=== PATIENT | male | born 1965 | race Caucasian/White ===

== ENCOUNTER 2016-05-16 05:42 | Emergency (ER) | payer OTHER ==
[~2016-05-16] VITALS: Ht 185.4 cm; Wt 171.0 kg
[2016-05-16 06:30] LABS: ADD MIUA? NO; BILIRUBIN NEGATIVE; BLOOD NEGATIVE; COLOR YELLOW ((YELLOW)); GLUCOSE (STRIP) NEGATIVE; KETONES NEGATIVE; LEUKOCYTES NEGATIVE; NITRITE NEGATIVE; PROTEIN (STRIP) NEGATIVE; SPECIFIC GRAVITY 1.017 (1.000-1.030); UROBILINOGEN 0.2 MG/DL (0.2-1.0)
[2016-05-16 06:31] LABS: BASOPHIL COUNT 0.1 K/uL (0-0.1); EOSINOPHIL COUNT 0.2 K/uL (0-0.3); HEMATOCRIT 46.8 % (38.0-50.0); IMMATURE GRANULOCYTE (%) 0.2 % (0.0-0.7); IMMATURE GRANULOCYTE COUNT 0.2 K/uL; LYMPHOCYTE COUNT 1.5 K/uL (1.0-2.8); MCH 29.8 PG (29.0-34.0); MCHC 33.3 G/DL (30.0-36.0); MCV 89.3 FL (86-99); MEAN PLAT.VOLUME 11.4 uM^3 (9.0-12.4); MONOCYTE (%) 6.1 % (3-12); MONOCYTE COUNT 0.5 K/uL (0-0.8); NEUTROPHIL (%) 73.6 % (45-76); NEUTROPHIL COUNT 6.3 K/uL (1.8-6.4); PLATELET COUNT 179 K/uL (156-360); RBC DIS.WIDTH-CV 13.1 % (11.8-14.6); RBC DIS.WIDTH-SD 42.5 % (39-53); RED BLOOD COUNT 5.24 M/uL (4.00-5.50); WHITE BLOOD COUNT 8.5 K/uL (4.1-10.2)
[2016-05-16 06:41] LABS: CHLORIDE 110 mEq/L (99-109); POTASSIUM 4.3 mEq/L (3.7-5.4); SODIUM 140 mEq/L (136-147)
[2016-05-16] MEDS ORDERED: TIMOPTIC-0100 DROP/1 BOTH EYES (06:42)
[2016-05-16 06:43] LABS: GLUCOSE 119 mg/dL (70-99)
[2016-05-16 06:44] LABS: ANION GAP 10 MEQ/L (2-14)
[2016-05-16 06:47] LABS: GFR ESTIMATE (CALCULATED) > 59 mL/min/
[2016-05-16 06:48] LABS: UREA NITROGEN (BUN) 15 mg/dL (9-23)
[2016-05-16] MEDS ORDERED: NORVASC5 MG PO (06:57)
[2016-05-16] MEDS ORDERED: FLEXERIL10 MG PO (06:57)
[2016-05-16] MEDS ORDERED: TYLENOL WITH C1 EACH PO (06:57)
[2016-05-16 07:18] VITALS: BP 156/90
== END 2016-05-16 07:19 | disposition home or self-care (01) ==
LOC: EME 05:42
PROVIDERS: Emergency Medicine
DX: R10.32 Left lower quadrant pain (principal); S39.012A Strain of muscle, fascia and tendon of lower back, initial encounter; X58.XXXA Exposure to other specified factors, initial encounter; I10 Essential (primary) hypertension; F17.200 Nicotine dependence, unspecified, uncomplicated; Z91.14 Patient's other noncompliance with medication regimen
CPT/HCPCS: 74176; 80048; 81003; 85025; 99281; 99284; J1885; J7030

== ENCOUNTER 2017-02-10 17:05 | Emergency (ER) | payer OTHER, BC ==
[~2017-02-10] VITALS: Ht 185.4 cm; Wt 163.7 kg
[~2017-02-10 17:05] MED LIST: FLEXERIL10 MG PO; NORVASC5 MG PO; TIMOPTIC-0100 DROP/1 BOTH EYES; TYLENOL WITH C1 EACH PO
[2017-02-10 17:39] LABS: ADD MIUA? YES; BILIRUBIN NEGATIVE; BLOOD LARGE; COLOR YELLOW ((YELLOW)); GLUCOSE (STRIP) NEGATIVE; KETONES NEGATIVE; LEUKOCYTES LARGE; NITRITE POSITIVE; PROTEIN (STRIP) 100; SPECIFIC GRAVITY 1.011 (1.000-1.030); UROBILINOGEN 0.2 MG/DL (0.2-1.0)
[2017-02-10 17:41] LABS: BASOPHIL COUNT 0.1 K/uL (0-0.1); EOSINOPHIL (%) 1.2 % (0-5); EOSINOPHIL COUNT 0.2 K/uL (0-0.3); HEMATOCRIT 48.6 % (38.0-50.0); IMMATURE GRANULOCYTE (%) 0.6 % (0.0-0.7); IMMATURE GRANULOCYTE COUNT 0.1 K/uL; INSTRUMENT ABS NEUTROPHIL CT 11.8 K/uL; LYMPHOCYTE COUNT 1.4 K/uL (1.0-2.8); MCH 29.4 PG (29.0-34.0); MCHC 32.1 G/DL (30.0-36.0); MCV 91.7 FL (86-99); MEAN PLAT.VOLUME 11.6 uM^3 (9.0-12.4); MONOCYTE (%) 6.7 % (3-12); NEUTROPHIL (%) 81.5 % (45-76); NEUTROPHIL COUNT 11.8 K/uL (1.8-6.4); PLATELET COUNT 175 K/uL (156-360); RBC DIS.WIDTH-CV 13.1 % (11.8-14.6); RBC DIS.WIDTH-SD 44.7 % (39-53); WHITE BLOOD COUNT 14.4 K/uL (4.1-10.2)
[2017-02-10 17:50] LABS: CHLORIDE 106 mEq/L (99-109); POTASSIUM 3.9 mEq/L (3.7-5.4); SODIUM 140 mEq/L (136-147)
[2017-02-10 17:52] LABS: GLUCOSE 103 mg/dL (70-99)
[2017-02-10 17:54] LABS: ANION GAP 5 MEQ/L (2-14); TOTAL BILIRUBIN 0.5 mg/dL (0.0-1.0)
[2017-02-10 17:56] LABS: ALKALINE PHOSPHATASE 95 IU/L (3-129); GFR ESTIMATE (CALCULATED) > 59 mL/min/
[2017-02-10 17:57] LABS: UREA NITROGEN (BUN) 13 mg/dL (9-23)
[2017-02-10 17:59] LABS: LIPASE 10 U/L (1.0-51.0)
[2017-02-10 18:00] LABS: CREATINE KINASE 82 IU/L (1-294); TOTAL CK 82 IU/L (1-294)
[2017-02-10 18:03] LABS: BACTERIA 1+ /HPF; EPITHELIAL CELLS NONE SEEN /HPF; MUCUS TRACE /LPF; RED BLOOD CELLS TNTC /HPF (0-5); WHITE BLOOD CELLS TNTC /HPF (0-5)
[2017-02-10 18:05] LABS: CK-MB 0.8 ng/mL (0.0-4.9)
[2017-02-10 21:38] VITALS: BP 136/80
[2017-02-11] MEDS ORDERED: ADVIL,NUPRIN,M200 MG PO (19:24)
[2017-02-12 12:12] LABS: CHLAMYDIA TRACHOMATIS NEGATIVE; NEISSERIA GONORRHOEAE NEGATIVE
== END 2017-02-10 21:40 | disposition home or self-care (01) ==
LOC: EME 17:05
PROVIDERS: Physician Assistant
DX: N39.0 Urinary tract infection, site not specified (principal); I10 Essential (primary) hypertension; H40.9 Unspecified glaucoma; F17.200 Nicotine dependence, unspecified, uncomplicated
CPT/HCPCS: 74176; 80053; 81003; 82550; 82553; 83690; 85025; 87491; 87591; 99281; 99285; J0696